=== PATIENT | female | born 1970 ===

== ENCOUNTER → 2020-08-09 16:16 | Outpatient (CLI) | payer MEDICAID ==
[2020-08-09 16:55] LABS: BASOPHILS 3.7 % (0-2); EOSINOPHILS 4.6 % (0-7); HEMATOCRIT 35.8 % (36.0-48.0); HEMOGLOBIN 11.6 g/dL (12-16); LYMPHOCYTES 26.2 % (15-50); MCH 28.9 pg (26.0-34.0); MCHC 32.3 g/dL (31.0-37.0); MCV 89.5 fL (80.0-100.0); MEAN PLATELET VOLUME 8.8 fL (7.4-10.4); MONOCYTES 6.3 % (2-11); NEUTROPHILS 59.2 % (40-80); PLATELET COUNT 576 10x3/uL (130-400); RDW 14.2 % (11.5-14.5); WBC 7.9 10x3/uL (4.8-10.8)
[2020-08-09 17:04] LABS: CALC OSMOLALITY 277 mosm/kg (275-300); CALCIUM 8.8 mg/dL (8.5-10.1); CARBON DIOXIDE 25.1 mmol/L (21.0-32.0); CHLORIDE - SERUM 101 mmol/L (98-107); CREATININE - SERUM 0.6 mg/dL (0.6-1.3); GLUCOSE 121 mg/dL (74-106); POTASSIUM - SERUM 4.7 mmol/L (3.5-5.1); SODIUM 139 mmol/L (136-145); UREA NITROGEN 9 mg/dL (7-18); VANCOMYCIN - TROUGH 15.2 ug/mL (10.0-20.0); eGFR NON AFRICAN AMERICAN > 90 mL/min (90-120)
== END | disposition home or self-care (01) ==
LOC: D.LABREF 16:16
PROVIDERS: ATTEND Specialist
DX: T85.79XD Infection and inflammatory reaction due to other internal prosthetic devices, implants and grafts, subsequent encounter (principal); Z79.2 Long term (current) use of antibiotics; A49.02 Methicillin resistant Staphylococcus aureus infection, unspecified site; I10 Essential (primary) hypertension